=== PATIENT | female | born 1960 | race Caucasian/White ===

== ENCOUNTER 2017-09-19 07:35 | Day surgery (SDC) | payer BC ==
--- NOTE | 2017-09-09 14:13 | HP ---
HISTORY AND PHYSICAL: DATE OF ADMISSION/SURGERY: 09/19/17 SURGEON: Mi Ace MD * (DICTATED BY DORIS STEPHENSON) PROCEDURE: Right knee arthroscopy with partial medial meniscectomy, possible chondroplasty, possible synovectomy. CHIEF COMPLAINT: Right knee pain. HISTORY OF PRESENT ILLNESS: Ms. Izquierdo is a 57-year-old female with complaints of right knee pain secondary to medial meniscus tear. She has elected to proceed with surgery, which is scheduled for 09/19/17. PAST MEDICAL HISTORY: Hypothyroidism. PAST SURGICAL HISTORY: Denies. CURRENT MEDICATIONS: 1. Synthroid 137 mcg daily. 2. Multivitamin. 3. Aleve as needed. ALLERGIES: No known drug allergies. FAMILY HISTORY: GA. SOCIAL HISTORY: A 57-year-old female, lives with her . She is a teacher at [employer]. She does not smoke or use drugs. She uses alcohol rarely. REVIEW OF SYSTEMS: A complete 14-point review of systems was reviewed with the patient, it was positive for hypothyroidism. She denies the history of DVT, PE , hepatitis C, HIV, or anesthesia problems. PHYSICAL EXAMINATION GENERAL: She is well developed, well nourished, in no acute distress. VITAL SIGNS: She stands 5 feet 4 inches tall, weighs 197 pounds. Blood pressure 127/80, heart rate 72. HEENT: Normocephalic, atraumatic. NECK: Supple. No palpable lymph nodes. PULMONARY: Lungs are clear to auscultation bilaterally. CARDIAC: Regular rate and rhythm. Strong S1 and S2. ABDOMEN: Soft, nontender, and nondistended. MUSCULOSKELETAL: Right lower extremity, skin is intact. There is no open wounds or abrasions. There is a mild joint effusion. She has some tenderness over the medial joint line. Positive Val. Negative Vega. No varus or valgus instability. She is distally neurovascularly intact. ASSESSMENT AND PLAN: Ms. Izquierdo is a 57-year-old female with right knee pain secondary to a medial meniscus tear. She has failed conservative management and elected to proceed with right knee arthroscopy with partial medial meniscectomy, possible chondroplasty, and possible synovectomy. Surgery is scheduled for 09/19/[address] Ace discussed the risks and benefits of the surgery and all of her questions were answered. She will follow up with Dr. Ace in 2 weeks after the surgery. DORIS STEPHENSON [id number]/CPS #: [id number] OVI
[~2017-09-19 07:35] MED LIST: Buffered Lidocaine 0.9% SYRIN* 5 ML/SYR SYRINGE INTRADERM ONE; Famotidine IV* 10 MG/ML 2 ML (20 mg) IV ONE; Metoclopramide TAB* 10 MG PO ONE
[2017-09-19] MEDS ORDERED: Metoclopramide TAB* 10 MG ONE (08:25)
[2017-09-19] MEDS ORDERED: ceFAZolin 2 GM PREMIX (*) 2 GM/50 ML BAG IVPB ONE (08:25)
[2017-09-19] MEDS ORDERED: Famotidine IV* 10 MG/ML 2 ML (20 mg) ONE (08:25)
[2017-09-19] MEDS ORDERED: Dexamethasone IV* 4 MG/ML 1 ML (4 MG) ONE (08:54)
[2017-09-19] MEDS ORDERED: Ketorolac INJ* 30 MG/ML 1 ML VIAL ONE (08:54)
[2017-09-19] MEDS ORDERED: Lidocaine 2% PF * 5 ML VIAL ONE (08:54)
[2017-09-19] MEDS ORDERED: Propofol* 10 MG/ML 20 ML BTL IV PUSH ONE (08:54)
[2017-09-19] MEDS ORDERED: Ondansetron INJ* 2 MG/ML VIAL ONE (08:54)
[2017-09-19] MEDS ORDERED: KETAMINE HCL* 50 MG/ML 10 ML VIAL ONE (08:55)
[2017-09-19] MEDS ORDERED: Midazolam* 1 MG/ML 10 ML VIAL (10 MG) ONE (08:55)
[2017-09-19] MEDS ORDERED: fentaNYL* 50 MCG/ML 2 ML VIAL (100 MCG VIAL) ONE ×3 (08:55→11:10)
[2017-09-19] MEDS ORDERED: EPINEPHRINE 1 MG/ML 1 ML VIAL ONE (08:56)
[2017-09-19] MEDS ORDERED: methylPREDNISolone ACETATE 80* 80 MG/ML 1 ML VIAL ONE (08:56)
[2017-09-19] MEDS ORDERED: Bupivacaine 0.25% SDV* 30 ML ONE (08:56)
[2017-09-19] MEDS ORDERED: Phenylephrine IV* 40 MCG/ML 10 ML SYRINGE ONE (09:36)
[2017-09-19] MEDS ORDERED: oxyCODONE/Acetamin 5/325 MG* TAB PO PRN (09:41)
[2017-09-19] MEDS ORDERED: Ondansetron INJ* 2 MG/ML VIAL IV PRN (09:41)
[2017-09-19] MEDS ORDERED: fentaNYL* 50 MCG/ML 2 ML VIAL (100 MCG VIAL) IV PRN (09:41)
[2017-09-19] MEDS ORDERED: EPHEDrine (Pressors)* 50 MG/ML VIAL ONE (09:44)
[2017-09-19] MEDS ORDERED: oxyCODONE/Acetamin 5/325 MG* TAB ONE (11:10)
[2017-09-19 12:36] VITALS: BP 155/97
--- NOTE | 2017-09-20 03:23 | OP ---
OPERATIVE REPORT: DATE OF OPERATION: 09/19/17 DATE OF : 62 ATTENDING SURGEON: Mi Ace MD RADIOLOGIST CHIEF OF BREAST IMAGING: DORIS Butt Ms. did help throughout the procedure with preparation of the leg, wound retraction, manipul ation of the knee, and wound closure. ANESTHESIOLOGIST: Dr. Enriquez. ANESTHESIA: General. PRE-OP DIAGNOSES: Right knee medial meniscal tear and osteoarthritis. POST-OP DIAGNOSES: Right knee medial meniscal tear, anterior synovitis, severe cartilage defect sheila g the medial femoral condyle grade 3 and 4 Outerbridge cartilage changes in the medial and patellofem oral compartment. OPERATIVE PROCEDURE: Right knee arthroscopy with partial medial meniscectomy, medial chondroplasty, anterior synovectomy. BRIEF HISTORY/INDICATION: Ms. Izquierdo is a 57-year-old female with several months of increasingly sev ere right knee pain. She had recurrent effusions and mechanical symptoms consistent with medial meni scal tear. She failed conservative treatment and MRI confirmed a medial meniscal tear. Due to chron ic pain and swelling, she elected to undergo right knee arthroscopy with partial medial meniscectomy. She understood that her known arthritis pain would continue. Informed consent was obtained from th e patient. She understood the risks of surgery, included but were not limited to bleeding, infection , damage to nearby structures, continued pain, need for further surgery, retear of the meniscus, stro ke, heart attack, blood clot, and . She wished to proceed. ESTIMATED BLOOD LOSS: Less than 25 cc. COMPLICATIONS: None. SPECIMEN: None. INTRAOPERATIVE FINDINGS: Intraoperatively, the patient was noted to have a displaced parrot beak typ e tear along the posterior medial meniscus involving the root of the meniscus. This appeared to be c hronic. She also had a large cartilage defect similar to an OCD along the weightbearing portion of t he medial femoral condyle. There was exposed subchondral bone. This was grade 4 Outerbridge cartila ge change. She was also noted to have grade 3 deep fissuring of the cartilage in the patellofemoral component. She was noted to have significant amount of anterior synovitis. DESCRIPTION OF PROCEDURE: Ms. Izquierdo was identified in the preanesthesia unit. Her right lower extre mity was marked as the correct operative side. Informed consent was signed and placed in the chart. The patient was taken to the operating room and placed under general anesthesia. Right lower extrem ity was prepped and draped in the usual sterile fashion. Preop time-out was made to correctly identi fy the patient's side and site. Appropriate perioperative antibiotics were given within 1 hour of in cision. Under direct visualization, a 0.5 cm anterolateral portal incision was made with a 15 blade and brien ed down through the capsule. The trocar was introduced. As soon as the light and water sources were turned on, there was immediate visualization of the suprapatellar pouch. A tour of the knee joint w as performed. Suprapatellar pouch had no obvious abnormality. Patellofemoral compartment had deep f issuring of the cartilage, which was consistent with grade 3 Outerbridge cartilage changes along the medial and lateral patellar facet. Medial gutters showed no loose body or plica. Medial compartment showed an anteriorly displaced medial meniscus tear as well as a large cartilage defect along the we ightbearing portion of the medial femoral condyle. ACL and PCL appeared to be intact. The knee was placed in a [id number]-[id number]-vbgf position. There were no significant degenerative changes in the lateral c ompartment. The lateral meniscus appeared to be intact. The lateral gutter had no obvious abnormality. Under direct visualization, a medial portal incision was made with a 15 blade. Probe was introduced a nd a second tour of the knee joint was performed. It was noted that there was a chronic tear of the posterior root of the medial meniscus with the anterior displacement and abrasion of the medial femor al condyle. This was similar to an osteochondral defect in the weightbearing portion of the medial f emoral condyle. There was significant exposed subcondylar bone. Shaver and radiofrequency ablation wand were introduced into the joint. The anterior synovitis was c arefully excised using both the shaver and radiofrequency ablation wand to obtain meticulous hemostas is. Radiofrequency ablation wand was used to smooth the edges of the cartilage flapping along the me dial femoral condyle. Next, the straight biter and shaver were used to perform partial medial menisc ectomy. The smooth border of the remaining medial meniscus was obtained in the white-red zone. Radi ofrequency ablation wand was used to further smooth the edge of the medial meniscus. The knee was copiously irrigated with sterile saline. All instruments were carefully removed. Incis ions were closed using interrupted 3-0 nylon suture. Intraarticular injection of 80 mg of Depo-Medrol and 6 cc of 0.25% Marcaine was placed in the knee joint. The patient's incisions were covered with Xeroform, 4x4s, and Webril. Reji wrap and cold pack were placed over this. The patient's anesthesia was reversed without difficulty. She was taken to the PACU in stable condit ion. Intended weightbearing will be weightbearing as tolerated. Intended DVT prophylaxis will be as pirin. She will follow up in clinic in 2 weeks' time. [id number]/[facility] #: [id number]
== END 2017-09-19 12:10 | disposition home or self-care (01) ==
LOC: OR 07:35
PROVIDERS: ATTEND Orthopaedic Surgery Adult Reconstructive Orthopaedic Surgery
DX: M23.203 Derangement of unspecified medial meniscus due to old tear or injury, right knee (principal); E03.9 Hypothyroidism, unspecified; M17.11 Unilateral primary osteoarthritis, right knee
CPT/HCPCS: A9270-GY; J0690; J1040; J1100; J1885; J2250; J2405; J2704; J3010

== ENCOUNTER 2019-02-17 05:46 | Inpatient (IN) | payer BC ==
--- NOTE | 2019-02-04 12:45 | HP ---
HISTORY AND PHYSICAL: DATE OF SURGERY/ADMISSION: 02/17/19 DATE OF OFFICE VISIT: 02/04/19 SURGEON: Mi Ace MD* (dictated by DORIS Butt), PROCEDURE: Right total knee arthroplasty. CHIEF COMPLAINT: Right knee pain. HISTORY OF PRESENT ILLNESS: Ms. Izquierdo is a 58-year-old female with continued complaints of right knee pain. She has failed conservative treatment and elected to proceed with right total knee arthroplasty. PAST MEDICAL HISTORY: Hypothyroidism. PAST SURGICAL HISTORY: Right knee arthroscopy. CURRENT MEDICATIONS: 1. Synthroid 137 mcg a day. 2. Multivitamin. 3. Tylenol Arthritis as needed. ALLERGIES: No known drug allergies. FAMILY HISTORY: Coronary artery disease and cancer. SOCIAL HISTORY: She is a 58-year-old female. She lives with her . She does not smoke or use drugs. Uses occasional alcohol. REVIEW OF SYSTEMS: A complete 14-point review of systems was reviewed with the patient. It was positive for hypothyroidism. She denies history of DVT, PE, hepatitis, HIV, or anesthesia problems. PHYSICAL EXAMINATION GENERAL: She is well developed, well nourished, in no acute distress. VITAL SIGNS: She stands 5 feet 4 inches tall, weighs 194 pounds. Her blood pressure is 126/82, heart rate is 88. HEENT: Normocephalic, atraumatic. NECK: Supple. No palpable lymph nodes. PULMONARY: Lungs are clear to auscultation bilaterally. CARDIO: Regular rate and rhythm. Strong S1, S2. ABDOMEN: Soft, nontender, nondistended. NEUROLOGICAL: She is alert and oriented x3. MUSCULOSKELETAL: Right lower extremity: The skin is intact. There are no open wounds or abrasions. There is moderate effusion of the right knee joint. She has some tenderness over the medial and lateral joint line. Range of motion is 5 to 120 degrees of flexion with patellofemoral crepitus. She is able to dorsiflex and plantarflex, has a 2+ dorsalis pedis pulse and intact sensation. ASSESSMENT AND PLAN: Ms. zIquierdo is a 58-year-old female with end-stage osteoarthritis of the right knee. She has failed conservative treatment and elected to proceed with right total knee arthroplasty. The surgery is scheduled for 02/17/[address] Ace discussed the risks and benefits of the surgery at today's visit and all of her questions were answered. She will follow up with Dr. Ace 2 weeks after the surgery. DORIS BUTT [id number]/[facility] #: [id number]
[~2019-02-17 05:46] MED LIST changes: -Buffered Lidocaine 0.9% SYRIN* 5 ML/SYR SYRINGE INTRADERM ONE; +Buffered Lidocaine 1% SYRIN* 1 ML/SYRINGE INTRADERM ONE; -Famotidine IV* 10 MG/ML 2 ML (20 mg) IV ONE; -Metoclopramide TAB* 10 MG PO ONE; +Tranexamic Acid 1,000 MG in NS 0.9% 50 ML* (outpatient use) IV SCH
--- OUTSIDE RECORDS SUMMARY | 2019-02-17 05:50 | XMS REPORT | Continuity of Care Document ---
:1960 External Reference #:[id number] Author Name Rukhsana Montaño Care Team Providers Name Role Phone Manisha Bartlett MD Primary Care Physician Unavailable Payers Date Identification Numbers Payment Provider Subscriber Policy Number: [id number] Facets Aleyda Izquierdo PayID: [id number] [address] [address] [place] [address] Advance Directives Description No Information Available Problems Active Problems Provider Date Arthralgia of the lower leg Cuco Milton M.D. Onset: 04/05/2015 Localized, primary osteoarthritis Mi Ace M.D. Onset: 06/17/2017 Acute meniscal tear, medial, posterior horn Mi Ace M.D. Onset: 2016 Current tear of medial cartilage AND/OR meniscus Mi Ace M.D. Onset: of knee Family History Date Family Member(s) Observation Comments General heart trouble General Cancer Social History Type Date Description Comments Sex Unknown Lives With ETOH Use Occasionally consumes alcohol Tobacco Use Start: Unknown Patient has never smoked Smoking Status Reviewed: 02/04/19 Patient has never smoked Exercise Type/Frequency Exercises regularly Allergies, Adverse Reactions, Alerts Description No Known Drug Allergies Medications Active Medications SIG Qnty Indications Ordering Provider Date Synthroid 1 by mouth every Unknown 137mcg Tablets day Multi Vitamin Daily Unknown Tablets Tylenol 8 Hour one daily Unknown Arthritis Pain 650mg Tablets ER History Medications Meloxicam 1 by mouth every 30tabs M25.461 Mi Ace, 10/30/2017 - 15mg day M.DBonilla 02/03/2019 Tablets Oxycodone-Acetamino 1 tabs by mouth 45tabs iM Ace, 09/19/2017 - phen every 6 hours as M.D. 09/02/2018 5-325mg needed for pain Tablets Aspirin take 1 by mouth 14tabs Mi Ace, 09/19/2017 - 325mg once a day for M.D. 09/02/2018 Tablets two weeks Medications Administered in Office Medication SIG Qnty Indications Ordering Provider Date Depomedrol 40MG Mi Ace M.D. 12/03/2018 Injection Depomedrol 40MG Mi Ace M.D. 09/03/2018 Injection Depomedrol 40MG Jose Valerio MD 04/23/2017 Injection Immunizations Description No Information Available Vital Signs Date Vital Result Comment 02/04/2019 8:02am Height 64 inches 5'4" Weight 199.00 lb Heart Rate 88 /min BP Systolic 126 mmHg BP Diastolic 82 mmHg BMI (Body Mass Index) 34.2 kg/m2 12/03/2018 7:54am Height 64 inches 5'4" Weight 193.00 lb BP Systolic 140 mmHg BP Diastolic 82 mmHg Body Temperature 98.7 F BMI (Body Mass Index) 33.1 kg/m2 09/03/2018 9:07am Height 63 inches 5'3" Heart Rate 88 /min BP Systolic 134 mmHg BP Diastolic 90 mmHg Body Temperature 98.4 F Pain Level 0 12/27/2017 9:58am Height 63 inches 5'3" Weight 190.00 lb Heart Rate 82 /min BP Systolic Sitting 120 mmHg BP Diastolic Sitting 76 mmHg Respiratory Rate 16 /min Pain Level 0 BMI (Body Mass Index) 33.7 kg/m2 10/30/2017 10:02am Height 63 inches 5'3" BP Systolic 110 mmHg BP Diastolic 70 mmHg Respiratory Rate 16 /min Body Temperature 98.6 F Pain Level 1 10/02/2017 9:54am Height 63 inches 5'3" Weight 195.00 lb BP Systolic 128 mmHg BP Diastolic 90 mmHg Body Temperature 97.9 F Pain Level 3 BMI (Body Mass Index) 34.5 kg/m2 09/09/2017 7:59am Height 64 inches 5'4" Weight 197.00 lb Heart Rate 72 /min BP Systolic 126 mmHg BP Diastolic 80 mmHg BMI (Body Mass Index) 33.8 kg/m2 07/05/2017 3:34pm Height 64 inches 5'4" Weight 197.00 lb BP Systolic 130 mmHg BP Diastolic 86 mmHg Respiratory Rate 18 /min Pain Level 2 BMI (Body Mass Index) 33.8 kg/m2 06/17/2017 8:17am Height 64 inches 5'4" Weight 197.00 lb Heart Rate 110 /min BP Systolic 119 mmHg BP Diastolic 81 mmHg Body Temperature 97.5 F Pain Level 0 BMI (Body Mass Index) 33.8 kg/m2 04/23/2017 2:06pm Height 64 inches 5'4" Weight 175.00 lb Heart Rate 81 /min Respiratory Rate 15 /min Pain Level 7 BMI (Body Mass Index) 30.0 kg/m2 03/12/2017 11:06am Height 64 inches 5'4" Weight 175.00 lb BP Systolic 132 mmHg BP Diastolic 82 mmHg Respiratory Rate 14 /min Body Temperature 97.1 F Pain Level 8 BMI (Body Mass Index) 30.0 kg/m2 09/13/2016 9:59am Height 64 inches 5'4" Weight 175.00 lb Heart Rate 97 /min BP Systolic 140 mmHg BP Diastolic 98 mmHg Respiratory Rate 17 /min Pain Level 1 BMI (Body Mass Index) 30.0 kg/m2 05/19/2015 10:01am Height 64 inches 5'4" Weight 175.00 lb Pain Level 4 BMI (Body Mass Index) 30.0 kg/m2 04/05/2015 10:43am Height 64 inches 5'4" Weight 175.00 lb Heart Rate 84 /min BP Systolic Sitting 122 mmHg BP Diastolic Sitting 80 mmHg Body Temperature 98.9 F BMI (Body Mass Index) 30.0 kg/m2 Results Description No Information Available Procedures Date Code Description Status 12/03/201893777 Inject/Drain Joint/Bursa Major W/O US Completed 09/03/201847395 Inject/Drain Joint/Bursa Major W/O US Completed 09/19/2017 79967 Arthroscopy,Knee,Meniscectomy Medial Or Lateral Completed 09/19/2017 50178 Arthroscopy,Knee,Meniscectomy Medial Or Lateral Completed 04/23/201799693 Inject/Drain Joint/Bursa Major W/O US Completed Encounters Type Date Location Provider Dx Diagnosis Office Visit 09/03/2018 [facility] Mi Ace, M25.561 Pain in right 8:45a [facility] M25.461 Effusion, right knee M17.11 Unilateral primary osteoarthritis, right knee Office Visit 12/27/2017 9:45a [facility] Mi Ace, M25.561 [facility] knee M25.461 Effusion, right knee M17.11 Unilateral primary osteoarthritis, right knee S83.241D Oth tear of medial meniscus, current injury, r knee, subs Office Visit 07/05/2017 3:30p [facility] Mi Ace, M25.561 Pain in right [facility] M.[facility] knee M25.461 Effusion, right knee M17.11 Unilateral primary osteoarthritis, right knee S83.241A Oth tear of medial meniscus, current injury, r knee, init Office Visit 06/17/2017 8:15a [facility] Mi Ace, M25.561 Pain in right [facility] M.[facility]. knee M25.461 Effusion, right knee M17.11 Unilateral primary osteoarthritis, right knee Office Visit 04/23/2017 2:00p Orthopedic Jose Lewis M25.561 Pain in [facility] Siobhan Valerio MD right knee M25.461 Effusion, right knee M17.11 Unilateral primary osteoarthritis, right knee Office Visit 03/12/2017 Orth[facility] Jose Lewis M19.011 Primary 11:00a [facility] osteoarthritis, [facility] right shoulder M25.461 Effusion, right knee M25.561 Pain in right knee M17.11 Unilateral primary osteoarthritis, right knee Office Visit 09/13/2016 Orthopedic Jose Lewis M17.12 Unilateral primary 10:00a [facility] osteoarthritis, left [facility] knee Office Visit 05/19/2015 Landy Milton, 719.46 Pain Joint Lower Leg 10:00a [facility] Office Visit 04/05/2015 Kenn Gorman9.46 Pain Joint Lower Leg 10:00a [facility] Plan of Treatment Future Appointment(s):03/02/2019 8:45 am - Mi Ace M.D. at [facility]02/17/2019 7:30 am - Bairon Quiñones PA-C at [facility]02/17/2019 7:30 am - DORIS Khan at [facility].02/17/2019 7:30 am - Mi Ace M.D. at [facility]02/04/2019 - Mi Ace M.D.M25.561 Pain in right kneeFollow up:Follow up: 2 weeks after cqhtysbS38.461 Effusion, right kneeM17.11 Unilateral primary osteoarthritis, right knee
--- OUTSIDE RECORDS SUMMARY | 2019-02-17 05:50 | XMS REPORT | Continuity of Care Document ---
:1960 External Reference #:[id number] Author Name Manisha Bartlett M.D. Address [address] [facility] [place] [address] Care Team Providers Name Role Phone Manisha Bartlett M.D. Care Team Information Process Control Specialist Unavailable Manisha Bartlett M.D. Primary Care Physician Unavailable Payers Date Identification Numbers Payment Provider Subscriber Effective: 2018 Policy Number: [id number] /BS Of JESUS Ariel Mariscal PayID: [id number] [address] [address] [place] [address] Advance Directives Description No Information Available Problems Active Problems Provider Date Hypothyroidism Manisha Bartlett M.D. Onset: 11/10/2018 Family History Date Family Member(s) Observation Comments Father ID Father due to Alzheimer's () Disease Father due to Prostate Cancer () : (age 94 Years) Mother due to Natural Causes Mother due to Congestive Heart () Failure Mother due to Dementia () Children 2 First Son No Current Problems First Daughter No Current Problems : (age 68 Years) First Brother due to Lung Cancer First Sister No Current Problems Social History Type Date Description Comments Sex Unknown Marital Status . 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 11/10/2018 137mcg day Tablets Multi For Her Unknown Capsules Meloxicam take one tablet Unknown 15mg Tablets by mouth once daily with food Immunizations CPT Code Status Date Vaccine Lot # [id number] Given 07/24/2018 Influenza Vac, Quadrivalent, Slit Virus, Im Vital Signs Date Vital Result Comment 01/26/2019 6:17pm BP Systolic 124 mmHg BP Diastolic 80 mmHg Heart Rate 78 /min Body Temperature 97.9 F Respiratory Rate 16 /min Height 62.25 inches 5'2.25" Weight 197.25 lb BMI (Body Mass Index) 35.8 kg/m2 11/10/2018 6:32pm BP Systolic 124 mmHg BP Diastolic 80 mmHg Heart Rate 68 /min Body Temperature 98.1 F Respiratory Rate 16 /min Height 62.25 inches 5'2.25" Weight 195.00 lb BMI (Body Mass Index) 35.4 kg/m2 Results Test Date Facility Test Result H/L Range Note Urinalysis Profile 12/31/2018 [facility] Urine Color Straw Urine Appearance Clear Urine Specific [place] 1.002 Low 1.010-1.030 Urine pH 6.0 N 5-9 Urine Urobilinogen Negative Negative Urine Ketones Negative Negative Urine Protein Negative Negative Urine Leukocytes 1+ Abnormal Negative Urine Blood Negative Negative Urine Nitrite Negative Negative Urine Bilirubin Negative Negative Urine Glucose Negative Negative Urine White Blood Cell Trace(0-5/hpf) Absent Urine Red Blood Cell Trace(0-2/hpf) Absent Urine Bacteria Absent Absent CBC Auto Diff 12/31/2018 [facility] White Blood Count 6.7 10^3/uL N 3.5-10.8 Red Blood Count 4.50 10^6/uL N 3.70-4.87 Hemoglobin 13.7 g/dL N 12.0-16.0 Hematocrit 41 % N 33-41 Mean Corpuscular Volume 91 fL N 80-97 Mean Corpuscular Hemoglobin 31 pg N 27-31 Mean Corpuscular HGB Conc 33 g/dL N 31-36 Red Cell Distribution Width 14 % N 10.5-15 Platelet Count 250 10^3/uL N 150-450 Mean Platelet Volume 8.4 fL N 7.4-10.4 Abs Neutrophils 4.5 10^3/uL N 1.5-7.7 Abs Lymphocytes 1.6 10^3/uL N 1.0-4.8 Abs Monocytes 0.5 10^3/uL N 0-0.8 Abs Eosinophils 0.2 10^3/uL N 0-0.6 Abs Basophils 0 10^3/uL N 0-0.2 Abs Nucleated RBC 0 10^3/uL Granulocyte % 66.4 % Lymphocyte % 23.6 % Monocyte % 6.9 % Eosinophil % 2.8 % Basophil % 0.3 % Nucleated Red Blood Cells % 0 Comp Metabolic Panel 12/31/2018 [facility] Sodium 141 mmol/L N 135-145 Potassium 4.1 mmol/L N 3.5-5.0 Chloride 104 mmol/L N 101-111 Co2 Carbon Dioxide 30 mmol/L N 22-32 Anion Gap 7 mmol/L N 2-11 Glucose 92 mg/dL N 70-100 Blood Urea Nitrogen 14 mg/dL N 6-24 Creatinine 0.78 mg/dL N 0.51-0.95 BUN/Creatinine Ratio 17.9 N 8-20 Calcium 9.7 mg/dL N 8.6-10.3 Total Protein 7.5 g/dL N 6.4-8.9 Albumin 4.4 g/dL N 3.2-5.2 Globulin 3.1 g/dL N 2-4 Albumin/Globulin Ratio 1.4 N 1-3 Total Bilirubin 0.30 mg/dL N 0.2-1.0 Alkaline Phosphatase 84 U/L N 34-104 Alt 17 U/L N 7-52 Ast 17 U/L N 13-39 Egfr Non- 76.1 >60 Egfr 92.1 >60 1 Laboratory test finding 12/31/2018 [facility] TSH (Thyroid Stim 0.92 mcIU/mL N 0.34-5.60 Horm) Free T4 (Free Thyroxine) 0.95 ng/dL N 0.61-1.12 Urine Culture And Sensitivities 12/31/2018 [facility] Urine Culture SEE RESULT BELOW 2 1 Because ethnic data is not always readily available, this report includes an eGFR for both -Americans and non- Americans. The National Kidney Disease Education Program (NKDEP) does not endorse the use of the MDRD equation for patients that are not between the ages of 18 and 70, are , have extremes of body size, muscle mass, or nutritional status, or are non- or non-. According to the National Kidney Foundation, irrespective of diagnosis, the stage of the disease is based on the level of kidney function: Stage Description GFR(mL/min/1.73 m(2)) 1 Kidney damage with normal or decreased GFR 90 2 Kidney damage with mild decrease in GFR 60-89 3 Moderate decrease in GFR 30-59 4 Severe decrease in GFR 15-29 5 Kidney failure <15 (or dialysis) 2 SEE RESULT BELOW Name: ARIEL MARISCAL Yen : [address]: Manisha Bartlett MD Acct: [id number] Unit: [id number] AGE: 58 Location: LAB Re12/31/18 SEX: F Status: REG REF SPEC: [id number] JEN: 12/31/[address]: Manisha Bartlett MD REQ: [id number] RECD: 12/31/18 STATUS: COMP _ SOURCE: URINE SPDESC: ORDERED: Urine Culture Procedure Result Reported Site Urine Culture Final 01/01/19- 1625 ML No Growth (<1,000 CFU/mL) * ML - Main Lab . END OF REPORT DEPARTMENT OF PATHOLOGY, [address] [place] [address] Jules Angeles M.D. Director [facility] # [id number] Procedures Date Code Description Status 01/26/2019 [id number] Mammogram Completed 12/04/2018 [id number] Mammogram Completed 09/30/2017 [id number] Colonoscopy Completed Encounters Type Date Location Provider Dx Diagnosis Office Visit 11/10/2018 Main Office Manisha Bartlett M.D. E03.9 Hypothyroidism, 6:20p unspecified Z12.31 Encntr screen mammogram for malignant neoplasm of breast Plan of Treatment Future Appointment(s):06/15/2019 5:00 pm - Manisha Bartlett M.D. at [id number] - Manisha Bartlett M.D.Z01.818 Encounter for other preprocedural examinationComments:Cleared for surgery. Will fax note to ordering physician. HOLD NSAIDS and supplements 7 days prior to [id number] Unilateral primary osteoarthritis, right kneeE03.9 Hypothyroidism, unspecifiedComments:stable on medicationAllComments:Medication Management Patient Understands medications she' s taking? Yes No Are there Barriers to Adherence? Yes No Has the patient been asked about herbal supplements and therapies, and OTC meds? Yes No
[2019-02-17] MEDS ORDERED: Acetaminophen IV 1GM/100ML * 1,000 MG/100 ML VIAL IVPB ONE (06:00)
[2019-02-17] MEDS ORDERED: Dexamethasone IV* 4 MG/ML 1 ML (4 MG) IV SLOW PU ONE (06:00)
[2019-02-17] MEDS ORDERED: Famotidine IV* 10 MG/ML 2 ML (20 mg) IV ONE (06:00)
[2019-02-17] MEDS ORDERED: Gabapentin CAP(*) 300 MG PO ONE (06:00)
[2019-02-17] MEDS ORDERED: celeCOXIB CAP* 200 MG PO ONE (06:00)
[2019-02-17] MEDS ORDERED: Lactated Ringers 1000 ML Bag* 1,000 ML IV SCH (06:00)
[2019-02-17] MEDS ORDERED: Gabapentin CAP(*) 300 MG ONE (06:10)
[2019-02-17] MEDS ORDERED: Dexamethasone IV* 4 MG/ML 1 ML (4 MG) ONE (06:10)
[2019-02-17] MEDS ORDERED: Famotidine IV* 10 MG/ML 2 ML (20 mg) ONE (06:11)
[2019-02-17] MEDS ORDERED: Buffered Lidocaine 1% SYRIN* 1 ML/SYRINGE INTRADERM ONE (06:11)
[2019-02-17] MEDS ORDERED: celeCOXIB CAP* 200 MG ONE (06:11)
[2019-02-17] MEDS ORDERED: ceFAZolin 2 GM PREMIX in ORs 2 GM/50 ML BAG IVPB ONE (06:11)
[2019-02-17] MEDS ORDERED: Acetaminophen IV 1GM/100ML * 100 ML ONE (06:22)
[2019-02-17] MEDS ORDERED: Bupivacaine 0.5% SDV PF* 30ML VIAL ONE (07:09)
[2019-02-17] MEDS ORDERED: Phenylephrine 10 MG/ML VIAL* 1 ML VIAL ONE (07:09)
[2019-02-17] MEDS ORDERED: Propofol* 10 MG/ML 20 ML BTL ONE (07:11)
[2019-02-17] MEDS ORDERED: Ondansetron INJ* 2 MG/ML VIAL ONE (07:11)
[2019-02-17] MEDS ORDERED: KETAMINE HCL* 50 MG/ML 10 ML VIAL ONE (07:13)
[2019-02-17] MEDS ORDERED: fentaNYL* 50 MCG/ML 2 ML VIAL (100 MCG VIAL) ONE (07:13)
[2019-02-17] MEDS ORDERED: Midazolam* 1 MG/ML 5 ML VIAL (5 MG) ONE (07:13)
[2019-02-17] MEDS ORDERED: ROPIVACAINE 5 MG/ML 30 ML BTL (0.5%) ONE ×2 (07:14→07:21)
[2019-02-17] MEDS ORDERED: Naloxone* 0.4 MG/ML 1 ML VIAL IV PRN (08:22)
[2019-02-17] MEDS ORDERED: DiMENhydriNATE IV* 50 MG/ML VIAL IV PUSH PRN (08:22)
[2019-02-17] MEDS ORDERED: Ondansetron INJ* 2 MG/ML VIAL IV PRN (08:22)
[2019-02-17] MEDS ORDERED: Scopolamine 1.5 mg* PATCH TRANSDERM PRN (08:22)
[2019-02-17] MEDS ORDERED: HYDROmorphone INJ1* 1 MG/ML SYRINGE IV PRN (08:22)
[2019-02-17] MEDS ORDERED: fentaNYL* 50 MCG/ML 2 ML VIAL (100 MCG VIAL) IV PRN (08:22)
[2019-02-17] MEDS ORDERED: Midazolam* 1 MG/ML 2 ML VIAL (2 MG) ONE (08:37)
[2019-02-17] MEDS ORDERED: Magnesium Hydroxide LIQ* 30 ML UDC PO PRN (09:48)
[2019-02-17] MEDS ORDERED: Polyethylene Glycol 3350* 17 GM PACKET PO PRN (09:48)
[2019-02-17] MEDS ORDERED: oxyCODONE/Acetamin 5/325 MG* TAB PO PRN (09:48)
[2019-02-17] MEDS ORDERED: Cyclobenzaprine TAB* 10 MG PO PRN (09:48)
[2019-02-17] MEDS ORDERED: diPHENhydraMINE IV* 50 MG/ML 1 ml VIAL (BENADRYL) IV PRN (09:48)
[2019-02-17] MEDS ORDERED: Bisacodyl SUPP* 10 MG SUPP PR PRN (09:48)
[2019-02-17] MEDS ORDERED: Ondansetron TAB* 4 MG PO PRN (09:48)
[2019-02-17] MEDS ORDERED: Morphine INJ* 2 MG/ML 1 ML SYRINGE (TWO MG - NEW SYRINGE VERSION) IV PRN (09:48)
[2019-02-17] MEDS: Lactated Ringers 1000 ML Bag* 1,000 ML IV SCH ×2 (11:10→21:22)
[2019-02-17] MEDS: oxyCODONE/Acetamin 5/325 MG* TAB PO PRN ×3 (11:12→19:55)
--- NOTE | 2019-02-17 14:35 | PN ---
Progress Note - Progress Note Date of Service: 02/17/19 Note: Pt seen at bedside. She became lightheaded with PT which resolved with rest. Pain is well controlled. Denies CP, SOB, nausea. DF/PF intact, sensation intact to light touch distally, dressing CDI.
[2019-02-17] MEDS: Acetaminophen TAB* 325 MG PO SCH ×2 (15:17→22:19)
[2019-02-17] MEDS: ceFAZolin 1 GM ADVAN(*) 1 GM in NS 0.9% 50 ML* 50 ML IVPB SCH (15:25)
--- NOTE | 2019-02-17 17:13 | OP ---
Operative Report - Blank - Operative Report Date of Operation: 02/17/19 Note: ARIEL MARISCAL 1960 Date of Surgery: 02/17/19 Mi Ace MD Manager Financial Reporting: Jennifer GEORGE did help throughout the procedure with preparation of the knee, wound retraction, manipulation of the knee, and wound closure. Anesthesiologist: Sally Bryan MD Anesthesia Type: Spinal Preoperative Diagnosis: Right severe degenerative osteoarthritis of the knee Postoperative Diagnosis: As above Procedure Performed: Right Total Knee Arthroplasty Tourniquet time: 46 minutes Complications: None Specimen: Bone and cartilage from the right knee joint sent to pathology. Hardware Used: Cemented Leija and Nephew total knee hardware was used - For the femur a size 5 narrow right oxinium legion posterior stabilized femoral component, for the tibia a size 3 right buddy II tibial baseplate, for the insert a size 11mm 3-4 posterior stabilized articular polyethylene insert, and for the patella a size 32 3-peg all poly patella. Brief History/Indication: ARIEL MARISCAL was known in clinic and had a history of severe right knee pain and swelling. She failed conservative treatment with anti-inflammatories, pain pills, intra-articular injections and physical therapy. She elected to undergo right total knee arthroplasty due to continued pain and decreased quality of life. Radiographs showed severe end stage osteoarthritis of the knee with bone on bone contact. Informed consent was obtained from the patient. She understood the risks of surgery included but were not limited to: bleeding, infection, damage to nearby structures, intraoperative fracture, nerve palsy, failure of the hardware, early loosening, knee stiffness or loss of motion, anesthesia complications, stroke, heart attack , blood clot and . She wished to proceed. Intra-Operative Findings: Intraoperatively the patient was noted to have severe loss of cartilage in all 3 compartments of the knee. Description of the Procedure: ARIEL MARISCAL was identified in the preanesthesia unit. Her right knee was marked as the correct operative side. Informed consent was signed and placed in the chart. The patient was taken to the operating room and placed under anesthesia without complication. A loiveros catheter was placed. A tourniquet was placed on the right thigh. The right lower extremity was prepped and draped in the usual sterile fashion. Preoperative time-out was made to correctly identify the patient, side and site. Appropriate intraoperative antibiotics were given within one hour of incision. Tourniquet was inflated. A midline incision was made and carried sharply down to the extensor mechanism. A new 10 blade was used to make a standard medial parapatellar arthrotomy. The patella was subluxed laterally. Electrocautery was used to dissect soft tissue off the superomedial tibia to the midsagittal plane. The knee was flexed up. The anterior horn of the lateral meniscus and the ACL were sharply incised. A drill was used to enter the distal femur. The intramedullary distal femoral cutting guide was pinned on the distal femur. The oscillating saw was used to make the distal femoral cut. The external rotation guide was pinned on the distal femur and the distal femur was sized to a size 5. The size 5 multi-cutting jig was pinned on the distal femur. The oscillating saw was used to make the appropriate 4 chamfer cuts. Next the PCL was completely released. The extramedullary tibial cutting guide was pinned on the proximal tibia and the oscillating saw was used to make the proximal tibial cut perpendicular to the mechanical axis of the tibia. The bone was carefully removed. The knee was brought out into full extension. The spacer block was placed and had excellent fit with the knee in full extension. The medial and lateral ligaments were well balanced. The flexion and extension gaps were well balanced. The knee was flexed up. Lamina test lead application testing was placed both medially and laterally. Any remaining meniscus was removed with electrocautery. Curved osteotome was used to remove any posterior osteophytes. The tibial tray and drop alejandro were placed and confirmed a satisfactory tibial cut. The size 5 narrow right femoral trial was impacted onto the distal femur. This trial had excellent fit and stability. The box for the posterior stabilized implant was prepared using a box cut osteotome and a reamer. Next a tibial tray trial and 9 mm insert trial was placed. The knee was taken through a range of motion and had full extension to 130 degrees of flexion. Patellofemoral tracking was satisfactory. The patella was inverted and sized to a size 32. Three peg holes were drilled through the size 32 drill guide. The trial patella was placed and the knee was taken through a range of motion. There was satisfactory patellofemoral tracking. All trials were removed. The tibia was subluxed anteriorly and sized to a size 3. The proximal tibial was prepared with a size 3 keel punch. All bony cut surfaces were irrigated with sterile saline and dried. Final implants were cemented into place starting with the tibia, followed by the femur, and last the patella. A 9 mm insert trial was placed and the knee was brought into full extension. Tourniquet was turned down and the knee was copiously irrigated with sterile saline. Electrocautery was used to obtain meticulous hemostasis. Once the cement had fully cured, the insert trial was removed. Any excess cement was removed from around the hardware and capsule. Final insert chosen was a 11 mm posterior stabilized Buddy II articular insert size 3-4. Stability of the insert was checked and noted to be stable. The extensor mechanism was closed using number 1 vicryls. The rest of the incision was closed in a layered fashion using 0 and 2-0 vicryls. The skin was closed using 3-0 nylon suture. Sterile xeroform, 4x4s and webril were used to cover the incision. Reji wrap and cold pack were used to cover the dressings. The patients anesthesia was reversed without difficulty. She was taken to the PACU in stable condition. Intended weight-bearing will be as tolerated.
[2019-02-17] MEDS: Docusate CAP* 100 MG PO SCH (19:55)
[2019-02-17] MEDS: Magnesium Hydroxide LIQ* 30 ML UDC PO SCH (19:56)
[2019-02-18] MEDS: oxyCODONE/Acetamin 5/325 MG* TAB PO PRN ×4 (00:13→16:30)
[2019-02-18] MEDS: ceFAZolin 1 GM ADVAN(*) 1 GM in NS 0.9% 50 ML* 50 ML IVPB SCH ×2 (00:15→08:02)
[2019-02-18] MEDS: oxyCODONE TAB* 5 MG TAB PO PRN ×2 (03:49→10:29)
[2019-02-18 05:11] LABS: Hematocrit 36 % (35-47); Hemoglobin 11.9 g/dL (12.0-16.0); Mean Platelet Volume 8.6 fL (7.4-10.4); Platelet Count 241 10^3/uL (150-450)
[2019-02-18 05:29] LABS: BUN/Creatinine Ratio 15.8 (8-20); Calcium 9.1 mg/dL (8.6-10.3); EGFR African American 94.9 (>60); EGFR Non-African American 78.4 (>60); Potassium 4.1 mmol/L (3.5-5.0)
[2019-02-18] MEDS: Levothyroxine TAB* 137 MCG TAB PO SCH (06:11)
[2019-02-18] MEDS: Acetaminophen TAB* 325 MG PO SCH ×2 (06:32→14:05)
[2019-02-18] MEDS: Lactated Ringers 1000 ML Bag* 1,000 ML IV SCH (08:03)
[2019-02-18] MEDS: Ondansetron INJ* 2 MG/ML VIAL IV PRN (08:39)
[2019-02-18] MEDS: Magnesium Hydroxide LIQ* 30 ML UDC PO SCH ×2 (10:29→21:03)
[2019-02-18] MEDS: Docusate CAP* 100 MG PO SCH ×2 (10:29→21:02)
[2019-02-18] MEDS: Apixaban* 2.5 MG TAB PO SCH ×2 (10:29→21:02)
--- NOTE | 2019-02-18 11:19 | PN ---
Progress Note - Progress Note Date of Service: 02/18/19 SOAP: Subjective: []Pt seen and examined at bedside. Knee pain is well controlled. Denies CP, SOB , dizziness, nausea, though she was nauseous this morning. Objective: []General: Appears well, NAD RLE: Right knee dressing CDI, thigh soft, DF/PF intact, DP2+, sensation intact to light touch distally. Calves supple and nontender without erythema, edema or palpable cords Assessment: []POD 1 sp right total knee arthroplasty Plan: []WBAT PT/OT eliquis 2.5 mg po BID for 30 days Outpt PT at dc. DC home today or tomorrow Vital Signs Temp 98.1 F 02/18/19 08:29 Pulse 72 02/18/19 08:29 Resp 16 02/18/19 10:29 BP 131/74 02/18/19 08:29 Pulse Ox 99 02/18/19 08:29 Intake & Output 02/17/19 02/18/19 02/18/19 18:59 06:59 18:59 Intake Total 3150 1200 1299 Output Total 1575 2700 Balance 1575 -1500 1299 Intake: IV Fluids 1500 1189 LR 1500 1189 IVPB 110 NS (0.9%) 110 Oral 1650 1200 Output: Urine 1100 Bauman 475 2700 Laboratory Last Values Hgb 11.9 g/dL (12.0-16.0) L 02/18/19 04:44 Hct 36 % (35-47) 02/18/19 04:44 Plt Count 241 10^3/uL (150-450) 02/18/19 04:44 MPV 8.6 fL (7.4-10.4) 02/18/19 04:44 Sodium 140 mmol/L (135-145) 02/18/19 04:44 Potassium 4.1 mmol/L (3.5-5.0) 02/18/19 04:44 Chloride 105 mmol/L (101-111) 02/18/19 04:44 Carbon Dioxide 30 mmol/L (22-32) 02/18/19 04:44 Anion Gap 5 mmol/L (2-11) 02/18/19 04:44 BUN 12 mg/dL (6-24) 02/18/19 04:44 Creatinine 0.76 mg/dL (0.51-0.95) 02/18/19 04:44 Est GFR ( Amer) 94.9 (>60) 02/18/19 04:44 Est GFR (Non-Af Amer) 78.4 (>60) 02/18/19 04:44 BUN/Creatinine Ratio 15.8 (8-20) 02/18/19 04:44 Glucose 148 mg/dL (70-100) H 02/18/19 04:44 Calcium 9.1 mg/dL (8.6-10.3) 02/18/19 04:44
[2019-02-18] MEDS: traMADol TAB* 50 MG PO PRN ×2 (14:37→21:02)
[2019-02-18] MEDS ORDERED: Scopolamine 1.5 mg* PATCH TRANSDERM SCH (15:00)
[2019-02-19] MEDS: Acetaminophen TAB* 325 MG PO SCH ×5 (00:41→22:35)
[2019-02-19] MEDS: oxyCODONE/Acetamin 5/325 MG* TAB PO PRN (03:48)
[2019-02-19 04:54] LABS: Hematocrit 34 % (35-47); Hemoglobin 11.3 g/dL (12.0-16.0); Mean Platelet Volume 8.2 fL (7.4-10.4); Platelet Count 214 10^3/uL (150-450)
[2019-02-19] MEDS: Levothyroxine TAB* 137 MCG TAB PO SCH (06:10)
--- NOTE | 2019-02-19 08:10 | PN ---
Progress Note - Progress Note Date of Service: 02/19/19 Note: Cross cover: HPI: CAT call for hypoxia and fever. Noted to be 50% on RA prior to my arrival. On arrival pt 88-90% on RA when oxygen removed. Pt is POD [address] Ace. She has had no complications. She has no known underlying pulmonary illnesses. She has a new fever of 102.7 associated with tachycardia. She denies SOB but identifies "slight" left lower chest wall pain 1-2/10 of unknown duration. PMhx: OA Hypothyroidism PSurgical: right knee arthroscopy NKDA Social Never smoker or drinker Lives with Current medications: reviewed in [facility] Vital Signs - 8 hr 02/19/19 02/19/19 02/19/19 03:48 04:11 05:35 Temperature 98.6 F Pulse Rate 113 Respiratory 16 17 Rate Blood Pressure 143/75 (mmHg) O2 Sat by Pulse 93 93 Oximetry 02/19/19 02/19/19 02/19/19 06:15 07:45 07:47 Temperature 102.7 F Pulse Rate 126 Respiratory 16 16 Rate Blood Pressure 159/73 (mmHg) O2 Sat by Pulse 55 94 Oximetry 02/19/19 07:59 Temperature Pulse Rate 130 Respiratory Rate Blood Pressure (mmHg) O2 Sat by Pulse 97 Oximetry A/P: POD 2 right TKA with stay complicated by fever Fever: Fever work up including blood cultures, UA and PA/LAT CXR. Tylenol given at my direction. Hold on any abx until after UA, CXR and monitored response to acetaminophen. 1 L NS at 100cc/hr given fever Hypoxia: low 90s on check when I arrived. Will not hopkins to CTA chest i setting of accompanied fever, lack of SOB other symptoms. Check CXR as above Plan relayed to orthopedic team
[2019-02-19] MEDS ORDERED: NS 0.9% 1000 ML** 1,000 ML IV SCH (08:15)
[2019-02-19 08:29] LABS: Mean Corpuscular HGB Conc 33 g/dL (31-36); Mean Corpuscular Hemoglobin 30 pg (27-31); Mean Corpuscular Volume 92 fL (80-97); Red Cell Distribution Width 14 % (10.5-15); White Blood Count 9.5 10^3/uL (3.5-10.8)
[2019-02-19] MEDS: Docusate CAP* 100 MG PO SCH ×2 (08:40→20:16)
[2019-02-19] MEDS: Magnesium Hydroxide LIQ* 30 ML UDC PO SCH ×2 (08:40→20:25)
[2019-02-19] MEDS: Apixaban* 2.5 MG TAB PO SCH ×2 (08:40→20:16)
[2019-02-19] MEDS: traMADol TAB* 50 MG PO PRN ×2 (08:45→18:45)
[2019-02-19 09:02] LABS: Urine Appearance Cloudy; Urine Bacteria Absent (Absent); Urine Bilirubin Negative (Negative); Urine Blood 3+ (Negative); Urine Color Yellow; Urine Glucose Negative (Negative); Urine Ketones Negative (Negative); Urine Nitrite Negative (Negative); Urine Protein Negative (Negative); Urine Red Blood Cell 3+(>10/hpf) (Absent); Urine Specific Gravity 1.011 (1.010-1.030); Urine Squamous Epithelial Cell Present (Absent); Urine Urobilinogen Negative (Negative); Urine White Blood Cell 2+(11-20/hpf) (Absent)
[2019-02-19] MEDS ORDERED: Iohexol 350* (CONTRAST) 500 ML MDV IV ONE (11:12)
--- NOTE | 2019-02-19 13:40 | PN ---
Progress Note - Progress Note Date of Service: 02/19/19 SOAP: Subjective: [] Pt seen at bedside. CAT call this morning due to tachycardia, fever, hypoxia. Infection workup ordered, CTA was negative for PE, positive for atelectasis. Denies chest pain, shortness of breath, dizziness, nausea, confusion. Objective: []General: Appears well, NAD, A&Ox 3 RLE: Right knee dressing changed, incision CDI, thigh soft, DF/PF intact, DP2+, sensation intact to light touch distally. Calves supple and nontender without erythema, edema or palpable cords Assessment: []POD 2 sp right total knee arthroplasty Plan: []WBAT PT/OT eliquis 2.5 mg po BID for 30 days Outpt PT at [place]. Await remainder of results, anticipate DC home tomorrow Vital Signs Temp 98.5 F 02/19/19 11:25 Pulse 88 02/19/19 11:34 Resp 18 02/19/19 12:40 BP 102/72 02/19/19 11:34 Pulse Ox 99 02/19/19 11:25 Intake & Output 02/18/19 02/19/19 02/19/19 18:59 06:59 18:59 Intake Total 2624 1500 360 Output Total 1375 1100 400 Balance 1249 400 -40 Weight 196 lb Intake: IV Fluids 1754 LR 1754 IVPB 110 NS (0.9%) 110 Oral 760 1500 360 Output: Urine 1375 1100 400 Laboratory Last Values WBC 9.5 10^3/uL (3.5-10.8) 02/19/19 04:46 RBC 3.80 10^6 /uL (3.70-4.87) 02/19/19 04:46 Hgb 11.3 g/dL (12.0-16.0) L 02/19/19 04:46 Hct 34 % (35-47) L 02/19/19 04:46 MCV 92 fL (80-97) 02/19/19 04:46 MCH 30 pg (27-31) 02/19/19 04:46 MCHC 33 g/dL (31-36) 02/19/19 04:46 RDW 14 % (10.5-15) 02/19/19 04:46 Plt Count 214 10^3/uL (150-450) 02/19/19 04:46 MPV 8.2 fL (7.4-10.4) 02/19/19 04:46 Sodium 140 mmol/L (135-145) 02/18/19 04:44 Potassium 4.1 mmol/L (3.5-5.0) 02/18/19 04:44 Chloride 105 mmol/L (101-111) 02/18/19 04:44 Carbon Dioxide 30 mmol/L (22-32) 02/18/19 04:44 Anion Gap 5 mmol/L (2-11) 02/18/19 04:44 BUN 12 mg/dL (6-24) 02/18/19 04:44 Creatinine 0.76 mg/dL (0.51-0.95) 02/18/19 04:44 Est GFR ( Amer) 94.9 (>60) 02/18/19 04:44 Est GFR (Non-Af Amer) 78.4 (>60) 02/18/19 04:44 BUN/Creatinine Ratio 15.8 (8-20) 02/18/19 04:44 Glucose 148 mg/dL (70-100) H 02/18/19 04:44 Calcium 9.1 mg/dL (8.6-10.3) 02/18/19 04:44 Urine Color Yellow 02/19/19 08:25 Urine Appearance Cloudy 02/19/19 08:25 Urine pH 6.0 (5-9) 02/19/19 08:25 Ur Specific [place] 1.011 (1.010-1.030) 02/19/19 08:25 Urine Protein Negative (Negative) 02/19/19 08:25 Urine Ketones Negative (Negative) 02/19/19 08:25 Urine Blood 3+ (Negative) A 02/19/19 08:25 Urine Nitrate Negative (Negative) 02/19/19 08:25 Urine Bilirubin Negative (Negative) 02/19/19 08:25 Urine Urobilinogen Negative (Negative) 02/19/19 08:25 Ur Leukocyte Esterase Trace (Negative) A 02/19/19 08:25 Urine WBC (Auto) 2+(11-20/hpf) (Absent) A 02/19/19 08:25 Urine RBC (Auto) 3+(>10/hpf) (Absent) A 02/19/19 08:25 Ur Squamous Epith Cells Present (Absent) A 02/19/19 08:25 Urine Bacteria Absent (Absent) 02/19/19 08:25 Urine Glucose Negative (Negative) 02/19/19 08:25
[2019-02-19] MEDS: Ondansetron INJ* 2 MG/ML VIAL IV PRN (22:57)
[2019-02-20] MEDS ORDERED: PROCHLORPERAZINE INJ 5 MG/ML 2 ML VIAL IV PRN (03:55)
[2019-02-20] MEDS ORDERED: PROCHLORPERAZINE INJ 5 MG/ML 2 ML VIAL ONE (04:00)
[2019-02-20 06:22] LABS: Hematocrit 31 % (35-47); Hemoglobin 10.2 g/dL (12.0-16.0); Mean Platelet Volume 8.6 fL (7.4-10.4); Platelet Count 191 10^3/uL (150-450)
[2019-02-20] MEDS: Acetaminophen TAB* 325 MG PO SCH (07:23)
[2019-02-20] MEDS: Levothyroxine TAB* 137 MCG TAB PO SCH (07:23)
[2019-02-20] MEDS: Apixaban* 2.5 MG TAB PO SCH (08:52)
[2019-02-20] MEDS: Docusate CAP* 100 MG PO SCH (08:52)
[2019-02-20] MEDS: Magnesium Hydroxide LIQ* 30 ML UDC PO SCH (08:53)
[2019-02-20] MEDS ORDERED: Acetaminophen TAB* 325 MG PO SCH (12:00)
--- NOTE | 2019-02-20 12:15 | DS ---
Orthopedic Discharge Summary - Discharge Summary Date of Admission:02/17/19 Date of Discharge: 02/20/19 Date of Surgery: 02/17/19 Attending Orthopedic Provider: Dr. Ace Pre-operative Diagnosis: Degenerative arthritis right knee Operative Procedure: Right total knee arthroplasty Disposition of Patient: home Condition of Patient: Stable History: ARIEL MARISCAL is a 58 year old F with years of increasingly severe right knee pain. Patient has failed conservative management and has elected to undergo a right total knee replacement Hospital Course: ARIEL was admitted to [facility] on 02/17/19. Patient underwent a right total knee arthroplasty without complication followed by a brief recovery in PACU and transfer to the Short Stay Surgical Unit in stable condition. Our hospitalist service, physical therapy and occupational therapy also participated in this patients care. Post-op day 1: patient was alert and in no acute distress. Dressing was clean, dry and intact. Operative extremity dorsiflexion and plantarflexion intact, sensation intact to light touch distally, DP2+. Post-op day two:CAT call this morning due to tachycardia, fever, hypoxia. Infection workup ordered, CTA was negative for PE, positive for atelectasis. dressing was changed, incision was clean, dry and intact. She had no further problems with low O2 sats, tachycardia. She is sensitive to narcotics, causing some nausea, therefore will try to use Tylenol . Patient was deemed to be medically and orthopedically stable for discharge. Physical therapy goals were met. Home Medications Medication Instructions Recorded Confirmed Type Acetaminophen [Tylenol Arthritis] 650 mg PO QAM 02/04/19 02/17/19 History Levothyroxine TAB* [Synthroid 137 137 mcg PO 0800 02/04/19 02/17/19 History MCG TAB*] Multivit-Min/Iron/Folic/Lutein 1 each PO QAM 02/04/19 02/17/19 History [Multivitamin Women 50 Plus Tab] Acetaminophen TAB* [Tylenol TAB*] 650 mg PO Q4H tab 02/20/19 Rx Apixaban* [Eliquis*] 2.5 mg PO BID #60 tab 02/20/19 Rx Docusate CAP* [Colace Cap*] 100 mg PO BID cap 02/20/19 Rx oxyCODONE/Acetamin 5/325 MG* 1 tab PO Q4H PRN #42 tab MDD 6 02/20/19 Rx [Percocet 5/325 TAB*] Discharge home WBAT RLE Percocet for moderate pain, will try to use Tylenol only Eliquis for DVT prophylaxis Follow up in 10-[address] Ace
[2019-02-20 12:44] VITALS: BP 125/73
[2019-02-21] MEDS ORDERED: Scopolamine PATCH Remove* 1 NOTE MISC PATCH OFF SCH (15:00)
== END 2019-02-20 14:10 | disposition home or self-care (01) | DRG 302 ==
LOC: AA 05:46 → SSU 10:53
PROVIDERS: ADMIT Orthopaedic Surgery Adult Reconstructive Orthopaedic Surgery; ATTEND Orthopaedic Surgery Adult Reconstructive Orthopaedic Surgery
PROC: 0SRC069 Replacement of Right Knee Joint with Oxidized Zirconium on Polyethylene Synthetic Substitute, Cemented, Open Approach (ICD-10-PCS; principal; 2019-02-17 07:30)
DX: M17.11 Unilateral primary osteoarthritis, right knee (principal); J98.11 Atelectasis; R11.0 Nausea; T40.605A Adverse effect of unspecified narcotics, initial encounter; Y92.239 Unspecified place in hospital as the place of occurrence of the external cause; R50.9 Fever, unspecified; R09.02 Hypoxemia; R00.0 Tachycardia, unspecified; E03.9 Hypothyroidism, unspecified; M25.461 Effusion, right knee; M25.761 Osteophyte, right knee; N20.0 Calculus of kidney; E66.9 Obesity, unspecified; Z68.33 Body mass index [BMI] 33.0-33.9, adult; Z82.49 Family history of ischemic heart disease and other diseases of the circulatory system; Z82.0 Family history of epilepsy and other diseases of the nervous system; Z80.1 Family history of malignant neoplasm of trachea, bronchus and lung
CPT/HCPCS: 36415; 71046; 71275; 80048; 81003; 81015; 85014; 85018; 85027; 85049; 87040; 87086; 88305; 88311; 93005; A9270-GY; C1776; J0690; J0780; J1100; J2250; J2405; J2704; J2795; J3010; J3490; Q9967